=== PATIENT | female | born 1975 | race Caucasian/White ===

== ENCOUNTER → 2017-08-21 21:30 | Outpatient (CLI) | payer OTHER, SELFPAY ==
[2017-08-26 12:55] LABS: HPV Reflexed? NOT INDICATED
== END ==
PROVIDERS: Family Provider Internal Medicine; PCP Internal Medicine; Visit Provider Obstetrics & Gynecology
DX: Z12.4 Encounter for screening for malignant neoplasm of cervix (principal)
CPT/HCPCS: 88175; G0145

== ENCOUNTER → 2017-09-26 13:21 | Outpatient (CLI) | payer OTHER, SELFPAY ==
--- NOTE | 2017-09-26 13:24 | BI_ITS ---
MAMMOGRAPHY - BILATERAL SCREENING REASON FOR EXAM: Female, 41 years old. Routine annual screening examination. PERTINENT HISTORY: Aunt with breast cancer. TECHNIQUE: Digital bilateral breast teddy (3D mammographic acquisition) in the CC and MLO projections. 2-D mediolateral oblique (MLO) and craniocaudad (CC) views of both breasts were obtained. CAD: Full Field Digital Mammography with Computer Added Detection was performed. COMPARISON: Comparison is made with prior study dated September 12, 2016 and August 20, 2015. FINDINGS: Breast Composition: The breasts are heterogeneously dense, which may obscure small masses. There are no dominant masses or suspicious calcifications. No other significant abnormalities are identified. There has been no significant change since the prior study. BI/SCREENING MAMM (CAD), BILAT IMPRESSION: Stable bilateral screening mammogram. Yearly follow-up mammogram recommended. (A) ASSESSMENT CATEGORY: BIRADS Category 1: Negative. A letter regarding these results will be sent to the patient by the facility within 30 days. Approximately 10% of breast cancers are not detected by mammography. A normal mammogram should not delay biopsy of a clinically suspicious abnormality. [id number] Electronically Signed: Chaz Roman MD at 14:47 EDT Tel [phone], Service support ,
== END ==
PROVIDERS: Family Provider Internal Medicine; PCP Internal Medicine; Visit Provider Obstetrics & Gynecology
DX: Z12.31 Encounter for screening mammogram for malignant neoplasm of breast (principal)
CPT/HCPCS: 77063; 77067

== ENCOUNTER → 2018-09-27 | Outpatient (CLI) | payer OTHER, SELFPAY ==
--- NOTE | 2018-09-27 16:25 | BI_ITS ---
MAMMOGRAPHY - BILATERAL SCREENING REASON FOR EXAM: Female, 42 years old. Routine annual screening examination. PERTINENT HISTORY: Aunt with breast cancer. TECHNIQUE: Digital bilateral breast teddy (3D mammographic acquisition) in the CC and MLO projections. 2-D mediolateral oblique (MLO) and craniocaudad (CC) views of both breasts were obtained. CAD: Full Field Digital Mammography with Computer Added Detection was performed. COMPARISON: Comparison is made with prior study dated September 26, 2017 and September 12, 2016. FINDINGS: Breast Composition: The breasts are heterogeneously dense, which may obscure small masses. There are no dominant masses or suspicious calcifications. No other significant abnormalities are identified. There has been no significant change since the prior study. BI/SCREENING MAMM (CAD), BILAT IMPRESSION: Stable bilateral screening mammogram. Yearly follow-up mammogram recommended. (A) ASSESSMENT CATEGORY: BIRADS Category 1: Negative. A letter regarding these results will be sent to the patient by the facility within 30 days. Approximately 10% of breast cancers are not detected by mammography. A normal mammogram should not delay biopsy of a clinically suspicious abnormality. [id number] Electronically Signed: Chaz Roman, at 10:55 EDT , Service support ,
== END | disposition home or self-care (01) ==
LOC: OPBI 16:23
PROVIDERS: Family Provider Internal Medicine; PCP Internal Medicine; Referring Provider Obstetrics & Gynecology; Visit Provider Obstetrics & Gynecology
DX: Z12.31 Encounter for screening mammogram for malignant neoplasm of breast (principal)
CPT/HCPCS: 77063; 77067

== ENCOUNTER → 2019-11-19 | Outpatient (CLI) | payer OTHER, SELFPAY ==
--- NOTE | 2019-11-19 14:50 | BI_ITS ---
MAMMOGRAPHY - BILATERAL SCREENING REASON FOR EXAM: Female, 43 years old. Routine annual screening examination. PERTINENT HISTORY: Aunt with breast cancer. TECHNIQUE: Digital bilateral breast freddy (3D mammographic acquisition) in the CC and MLO projections. 2-D mediolateral oblique (MLO) and craniocaudad (CC) views of both breasts were obtained. CAD: Full Field Digital Mammography with Computer Added Detection was performed. COMPARISON: Comparison is made with prior study dated September 27, 2018 and September 26, 2017. FINDINGS: Breast Composition: The breasts are heterogeneously dense, which may obscure small masses. There are no dominant masses or suspicious calcifications. No other significant abnormalities are identified. There has been no significant change since the prior study. BI/SCREEN MAMM (CAD) W/FREDDY BILAT IMPRESSION: Stable bilateral screening mammogram. Yearly follow-up mammogram recommended. (A) ASSESSMENT CATEGORY: BIRADS Category 1: Negative. A letter regarding these results will be sent to the patient by the facility within 30 days. Approximately 10% of breast cancers are not detected by mammography. A normal mammogram should not delay biopsy of a clinically suspicious abnormality. [id number] Electronically Signed: Chaz Roman, at 15:34 EDT , Service support ,
== END | disposition home or self-care (01) ==
LOC: OPBI 14:49
PROVIDERS: PCP Internal Medicine; Referring Provider Obstetrics & Gynecology; Visit Provider Obstetrics & Gynecology
DX: Z12.31 Encounter for screening mammogram for malignant neoplasm of breast (principal)
CPT/HCPCS: 77063; 77067

== ENCOUNTER → 2020-11-26 | Outpatient (CLI) | payer OTHER, SELFPAY ==
[2020-12-02 18:29] LABS: HPV APTIMA, High Risk Negative (Negative)
== END | disposition home or self-care (01) ==
LOC: LABSPEC 16:29
PROVIDERS: PCP Internal Medicine; Visit Provider Student in an Organized Health Care Education/Training Program
DX: Z12.4 Encounter for screening for malignant neoplasm of cervix (principal)
CPT/HCPCS: 87624; 88175; G0145

== ENCOUNTER → 2020-12-25 08:30 | Outpatient (CLI) | payer OTHER, SELFPAY ==
--- NOTE | 2020-12-25 08:31 | BI_ITS ---
MAMMOGRAPHY - BILATERAL SCREENING REASON FOR EXAM: Female, 45 years old. Routine annual screening examination. PERTINENT HISTORY: Aunt with breast cancer. TECHNIQUE: Digital bilateral breast freddy (3D mammographic acquisition) in the CC and MLO projections. 2-D mediolateral oblique (MLO) and craniocaudad (CC) views of both breasts were obtained. CAD: Full Field Digital Mammography with Computer Added Detection was performed. COMPARISON: Comparison is made with prior study dated 11/19/2019 and 09/27/2018. FINDINGS: Breast Composition: The breasts are heterogeneously dense, which may obscure small masses. There are no dominant masses or suspicious calcifications. No other significant abnormalities are identified. There has been no significant change since the prior study. BI/SCRN MAMM (CAD)W/FREDDY BILAT IMPRESSION: Stable bilateral screening mammogram. Yearly follow-up mammogram recommended. (A) ASSESSMENT CATEGORY: BIRADS Category 1: Negative. A letter regarding these results will be sent to the patient by the facility within 30 days. Approximately 10% of breast cancers are not detected by mammography. A normal mammogram should not delay biopsy of a clinically suspicious abnormality. [id number] Electronically Signed: Chaz Roman MD at 9:57 EDT , Service support ,
== END ==
PROVIDERS: PCP Internal Medicine; Referring Provider Student in an Organized Health Care Education/Training Program; Visit Provider Student in an Organized Health Care Education/Training Program
DX: Z12.31 Encounter for screening mammogram for malignant neoplasm of breast (principal)
CPT/HCPCS: 77063; 77067

== ENCOUNTER 2021-06-22 15:30 | Outpatient (CLI) | payer OTHER, SELFPAY ==
--- NOTE | 2021-06-22 15:40 | MRI_ITS ---
STUDY: MRI BRAIN WITH AND WITHOUT CONTRAST (ATTENTION INTERNAL AUDITORY CANALS - I.A.C.''s) REASON FOR EXAM: Female, 45 years old. [employer] TECHNIQUE: Standardized multiplanar fat and water weighted pulse sequences were obtained. IV dotarem 17ml was administered for the contrast portion of the examination. COMPARISON: None. FINDINGS: Normal bilateral temporal bones. Normal bilateral internal auditory canals. There is no demonstrated intracanalicular or cisternal vestibular schwannoma (acoustic neuroma). There is no enhancement of the bilateral VIIth or VIIIth cranial nerves. Normal bilateral cochlea, vestibules and semicircular canals. Normal size of the ventricles and extra-axial spaces for the patient''s age. Normal white matter tracts of the supratentorial brain. Normal bilateral basal ganglia. There is no enhancing intra-axial or extra-axial abnormality. There is no extra-axial fluid accumulation. Normal sella turcica, pituitary gland, infundibular stalk, optic chiasm and hypothalamus. Normal tectal plate and pineal gland. Normal midbrain, lili and medulla. Normal cerebellum. MRI/Brain W/WO Contrast IMPRESSION: There is no demonstrated intracanalicular or cisternal vestibular schwannoma (acoustic neuroma). Electronically Signed: Marcos Sutton MD at 14:10 EST Tel , Service support ,
== END 2021-06-22 23:59 | disposition short-term general hospital (02) ==
LOC: MRI 15:32
PROVIDERS: PCP Internal Medicine; Visit Provider Otolaryngology
DX: R27.0 Ataxia, unspecified (principal)
CPT/HCPCS: 70553; A9575

== ENCOUNTER → 2022-02-16 | Outpatient (CLI) | payer OTHER, SELFPAY ==
--- NOTE | 2022-02-16 16:02 | BI_ITS ---
MAMMOGRAPHY - BILATERAL SCREENING REASON FOR EXAM: Female, 46 years old. Routine annual screening examination. PERTINENT HISTORY: Aunt with breast cancer. TECHNIQUE: Digital bilateral breast freddy (3D mammographic acquisition) in the CC and MLO projections. 2-D mediolateral oblique (MLO) and craniocaudad (CC) views of both breasts were obtained. CAD: Full Field Digital Mammography with Computer Added Detection was performed. COMPARISON: Comparison is made with prior study dated 12/25/2020 and 11/19/2019. FINDINGS: Breast Composition: The breasts are heterogeneously dense, which may obscure small masses. There are no dominant masses or suspicious calcifications. No other significant abnormalities are identified. There has been no significant change since the prior study. BI/SCRN MAMM (CAD)W/FREDDY BILAT IMPRESSION: Stable bilateral screening mammogram. Yearly follow-up mammogram recommended. (A) ASSESSMENT CATEGORY: BIRADS Category 1: Negative. A letter regarding these results will be sent to the patient by the facility within 30 days. Approximately 10% of breast cancers are not detected by mammography. A normal mammogram should not delay biopsy of a clinically suspicious abnormality. [id number] Electronically Signed: Chaz Roman MD at 8:14 EDT ,
== END | disposition home or self-care (01) ==
LOC: OPBI 16:00
PROVIDERS: PCP Internal Medicine; Visit Provider Student in an Organized Health Care Education/Training Program
DX: Z12.31 Encounter for screening mammogram for malignant neoplasm of breast (principal)
CPT/HCPCS: 77063; 77067

== ENCOUNTER → 2023-02-21 | Outpatient (CLI) | payer OTHER, SELFPAY ==
--- NOTE | 2023-02-21 16:16 | BI_ITS ---
MAMMOGRAPHY - BILATERAL SCREENING REASON FOR EXAM: Female, 47 years old. Routine annual screening examination. PERTINENT HISTORY: Aunt with breast cancer. TECHNIQUE: Digital bilateral breast freddy (3D mammographic acquisition) in the CC and MLO projections. 2-D mediolateral oblique (MLO) and craniocaudad (CC) views of both breasts were obtained. CAD: Full Field Digital Mammography with Computer Added Detection was performed. COMPARISON: Comparison is made with prior study dated February 16, 2022 and December 25, 2020. FINDINGS: Breast Composition: The breasts are heterogeneously dense, which may obscure small masses. There are no dominant masses or suspicious calcifications. No other significant abnormalities are identified. There has been no significant change since the prior study. BI/SCRN MAMM (CAD)W/FREDDY BILAT IMPRESSION: Stable bilateral screening mammogram. Yearly follow-up mammogram recommended. (A) ASSESSMENT CATEGORY: BIRADS Category 1: Negative. A letter regarding these results will be sent to the patient by the facility within 30 days. Approximately 10% of breast cancers are not detected by mammography. A normal mammogram should not delay biopsy of a clinically suspicious abnormality. [id number] Electronically Signed: Chaz Roman MD at 8:39 EDT ,
== END | disposition home or self-care (01) ==
LOC: OPBI 16:15
PROVIDERS: PCP Internal Medicine; Referring Provider Student in an Organized Health Care Education/Training Program; Visit Provider Student in an Organized Health Care Education/Training Program
DX: Z12.31 Encounter for screening mammogram for malignant neoplasm of breast (principal)
CPT/HCPCS: 77063; 77067

== ENCOUNTER → 2025-02-12 | Outpatient (CLI) | payer OTHER, SELFPAY ==
--- NOTE | 2025-02-12 17:11 | RAD_ITS ---
PROCEDURE: CHEST PA AND LATERAL 02/12/2025 REASON FOR EXAM: COUGH X 3 MONTHS TECHNIQUE: CHEST PA AND LATERAL COMPARISON: none FINDINGS: No focal consolidation. No pleural effusion or pneumothorax. Cardiac silhouette is within normal limits. No acute fractures. RAD/Chest PA and Lateral IMPRESSION: No focal consolidations. Reading Location: [facility] [place]
== END | disposition home or self-care (01) ==
LOC: RAD 17:06
PROVIDERS: PCP Internal Medicine; Referring Provider Otolaryngology; Visit Provider Otolaryngology
DX: R05.9 Cough, unspecified (principal)
CPT/HCPCS: 71046

== ENCOUNTER → 2025-02-13 | Outpatient (CLI) | payer OTHER, SELFPAY ==
--- OUTSIDE RECORDS SUMMARY | 2025-02-13 06:38 | XMS RPT_ITS | CCD ---
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 oblique view of right ribs are presented for interpretation. PA view of the chest is also present. FINDINGS: There is no evidence of acute right rib fracture or other bony abnormality. There is no pneumothorax or pleural effusion. The underlying visualized lungs appear normal. DIVISION OF RADIOLOGY Provider, [facility] - 09/02/2024 * * *Final Report* * * DATE OF EXAM: Sep 02 2024 5:11PM WOX 5244 - XR RIB/CHST 3V AP RIB/OBL/CHST R / PROCEDURE REASON: Rib pain * * * * Physician Interpretation * * * * XR RIB/CHST 3V AP RIB/OBL/CHST R EXAM DATE/TIME: 09/02/2024 5:11 PM COMPARISON: None. CLINICAL INDICATION/HISTORY: Rib pain. TECHNIQUE: AP views centered high and low and oblique view of right ribs are presented for interpretation. PA view of the chest is also present. FINDINGS: There is no evidence of acute right rib fracture or other bony abnormality. There is no pneumothorax or pleural effusion. The underlying visualized lungs appear normal. IMPRESSION IMPRESSION: No acute right rib fracture. Program Consultant: JEANNIE Transcribe Date/Time: Sep 02 2024 5:37P Dictated by : JOHNNY JONES MD This examination was interpreted and the report reviewed and electronically signed by: JOHNNY JONES MD on Sep 02 2024 5:38PM EST [facility] ic YECENIA SCREENING W TOMOon 03-20 YECENIA SCREENING W FREDDY * * *Final Report* * * DATE OF EXAM: Mar 20 2024 3:20PM WRW [id number] - YECENIA SCREENING W FREDDY / PROCEDURE REASON: Encounter for screening mammogram for breast cancer * * * * Physician Interpretation * * * * RESULT: [place] [id number] HISTORY: Patient is 48 years old and is seen for screening and is asymptomatic in both breasts. The patient has no personal history of cancer. COMPARISON STUDIES: No prior imaging studies are available for comparison. MAMMOGRAM TECHNIQUE: The study was acquired using full field digital technology and interpreted from soft copy. Digital Breast Tomosynthesis (DBT) images were obtained and used to assist in the interpretation of this examination. Computer-aided detection was utilized by the radiologist in the interpretation of this examination. MAMMOGRAM FINDINGS: The breasts are heterogeneously dense, which may obscure small masses. No suspicious masses, calcifications or other abnormalities are seen in either breast. IMPRESSION: There is no mammographic evidence of malignancy in either breast. Routine follow-up mammogram in 1 year is recommended. BI-RADS Category 1: Negative RISK: Based on the Tyrer-Cuzick (TC) risk assessment model, this patient has a 8.9% lifetime risk of developing breast cancer, meaning they are at average risk for developing breast cancer. However, this is only an estimate based on available history provided on the patient's questionnaire. We encourage all patients talk with their providers about these results, further recommendations for managing breast health, and appropriate supplemental screening options if the patient has dense breast tissue. Interpreting Radiologist: Adal Mckinnon M.D. Electronically signed on: 03/27/2024 Program Consultant: ELOY Olivaribe Date/Time: Mar 20 2024 3:07P Dictated by: ADAL MCKINNON MD This examination was interpreted and the report reviewed and electronically signed by: ADAL MCKINNON MD on Mar 27 2024 10:38AM EST [id number] Normal [facility] CNOVon 02-20-2024 CNOV Office Visit (OBGYWM ) ERA AWAD ([id number]) 1975 F Date Time Provider Department 02/20/24 3:30 PM VANESSA PALOMARES OBLEEROYWLuciana During your visit today, we recorded the following information about you: Blood pressure Weight Height 126/80 69.9 kg 1.61 m Vanessa Palomares APRN.CNP 02/20/2024 4:46 PM Signed Sound Printer offered: Patient declines. Era is a 48 year old who presents for an annual gynecologic exam without complaints. [place] transfer Menses: just a few days of light spotting. Contraception: Progestin - only contraceptives HPV vaccine: No Last Pap: normal HPV: negative History of abnormal pap: No Last mammogram: 2022normal @ [facility] Sexually active: Yes Pain with intercourse: No Postcoital bleeding: No Hot flashes: Yes Night sweats: Yes OB History T2 L2 SAB0 IAB0 Ectopic0 Multiple0 Live Births2 Maintenance Clerk History LMP: Having periods Age at Menarche: Age at First : Age at Menopause: Maintenance Clerk History Comments: Sexual Activity: Yes; Male Contraception: No contraception data on record PAST MEDICAL HISTORY No date: Other acnePAST SURGICAL HISTORY No date: COLONOSCOPY SCREENING No date: PAST SURGICAL HISTORY OF Comment: sinus No date: PAST SURGICAL HISTORY OF Comment: neck surgery 11/30 FAMILY HISTORY Problem Relation Age of Onset Hypertension Mother other (hypercholesterolemia ) Mother Psychiatry Mother with previous hospital admission None Father No Known Problems Maternal Grandmother No Known Problems Maternal Grandfather No Known Problems Paternal Grandmother Cancer Paternal Grandfather SOCIAL HISTORY Social History Tobacco Use Smoking status: Never Smokeless tobacco: Never Vaping Use Vaping status: Never Used Substance Use Topics Alcohol use: No Drug use: No REVIEW OF SYSTEMS Abdomen: No abdominal pain, nausea, vomiting, diarrhea, or constipation. No bloating, early satiety, indigestion, or increased flatulence. Bladder: No dysuria, gross hematuria, urinary frequency, urinary urgency, or incontinence. Breast: No breast lumps, nipple d/c, overlying skin changes, redness or skin retraction. Allergies and current medication updated:Yes EXAM: BP 126/80 Ht 5' 3.386 (1.61m) Wt 154 lb (69.9kg) BMI 26.95 kg/(m2). GENERAL: pleasant, female in no apparent distress HEENT: Normocephalic, atraumatic, mucus membranes moist, and no lesions NECK: Supple, full range of motion, no adenopathy, and thyroid normal DERMATOLOGY: Normal, without lesions, non-icteric, and non-hirsute BREAST: soft, non-tender, symmetric, no dominant mass, normal nipple-areolar complex, no lymphadenopathy, and no nipple discharge CHEST: Normal inspiratory effort ABDOMEN: soft, non-tender, and no masses PELVIC: external genitalia normal, normal Bartholin's glands, urethra, Spearman's glands, no vulvar lesions, no cervical lesions, good vaginal support, physiologic discharge present, normal appearing perineal body and perianal region BIMANUAL: uterus normal size, shape and consistency, no adnexal masses, and non-tender RECTOVAGINAL: deferred. NEURO: alert and oriented x3,exam grossly non-focal EXTREMITIES: normal ASSESSMENT/PLAN: 1) Health maintenance: Pap done with HPV. Mammogram ordered. Nutrition, exercise and routine health maintenance exams reviewed. Calcium/Vitamin D supplementation information provided. 2) Contraception: Progestin - only contraceptives. Contraceptive options reviewed and information provided. 3) STD screening: Declined STD check. 4) Follow up one year or sooner as needed Vanessa Palomares APRN.LUMBER CHECKER Allergies As of Date: 02/20/2024 Noted Allergy Reaction BACTRIM (SULFAMETHOXAZOLE-TRI METH*08/18/2005 Date Reviewed: 02/20/2024 Reviewed by: Vanesas Palomares APRN.LUMBER CHECKER - Fully Assessed Reason for Visit: Well Woman [1463] Primary Visit Diagnosis:Encounter for gynecological examination (general) (routine) without abnormal findings [Z01.419] Other Visit Diagnoses:Screening for cervical cancer [Z12.4] Encounter for screening for human papillomavirus (HPV) [Z11.51] Encounter for screening mammogram for breast cancer [Z12.31] Order(s):PAP TEST [[id number]] Order #: [id number]. #:[id number] YECENIA SCREENING W FREDDY [[id number]] Order #: [id number] FUTURE Norethindrone, Contraceptive, 0.35 mg tabletTake 1 tablet by mouth every afternoon.Disp: 84 tabletRfl: 3 Prescriptions as of 02/20/2024 - spironolactone (ALDACTONE) 100 mg tablet Take 100 mg by mouth once daily. - Norethindrone, Contraceptive, 0.35 mg tablet Take 1 tablet by mouth every afternoon. Problem List As Of Date 02/20/2024 Noted Resolved Cystitis [N30.90] 05/16/2012 Generalized abdominal pain [R10.84] 05/16/2012 Urgency of urination [R39.15] 05/16/2012 Frequency of urination [R35.0] 05/16/2012 Microscopic hematuria [R31.29] 05/16/2012 (more content not included)... Normal [facility] HIGH RISK HUMAN PAPILLOMA SHERYL (HPV), PCR FOR DETECTION AND GENOTYPINGon 02-20-2024 HPV 16 Ag Ql (Unsp spec) Not detected Normal Not detected [facility] Comment on above: Order Comment: Speci men Type: FLUID SPECIMEN Ordering Facility: [facility] Address: [address] [place] [address] Performed By: #### L [id number], HPVHRT #### [facility] CLIA [id number] [address] [place] [address] [place] HPV 18 Ag Ql (Unsp spec) Not detected Normal Not detected [facility] Comment on above: Order Comment: Speci men Type: FLUID SPECIMEN Ordering Facility: [facility] Address: [address] [place] [address] Performed By: #### L [id number], HPVHRT #### [facility] CLIA [id number] [address] [place] [address] [place] HPV 31+33+35+39+45+51+5 2+56+58+59+66+68 DNA JENS+probe Ql (Cvx) Not detected Normal Not detected [facility] Comment on above: Order Comment: Speci men Type: FLUID SPECIMEN Ordering Facility: [facility] Address: [address] [place] [address] Result Comment: High Risk HPV Other Type includes HPV types 31, 33, 35, 39, 45, 51, 52, 56, 58, 59, 66 and 68. Performed By: #### L [id number], HPVHRT #### [facility] CLIA [id number] [address] [place] [address] [place] PAP TESTon 02-20-2024 ADEQUACY Satisfactory for interpretation. Normal [facility] Comment on above: Order Comment: Speci men Type: FLUID SPECIMEN Ordering Facility: [facility] Address: [address] [place] [address] Performed By: #### L [id number], HPVHRT #### [facility] CLIA [id number] [address] [place] [address] [place] CASE REPORT Normal [facility] Comment on above: Order Comment: Speci men Type: FLUID SPECIMEN Ordering Facility: [facility] Address: [address] [place] [address] Result Comment: Gyne cologic Cytology Report Case: [id number] Authorizing Provider: Vanessa Palomares APRN.LUMBER CHECKER Collected: 02/20/2024 04:16 PM Ordering Location: OB/Gynecology Received: 02/20/2024 04:33 PM First Screen: Hannah, Zoe, CT, ASCP Specimen: Pap Test, ThinPrep, Cervix Performed By: #### L [id number], HPVHRT #### [facility] CLIA [id number] [address] [place] [id number] [place] CLINICAL HISTORY, CYTOLOGY, SURGERY TECHNICIAN Routine Exam Normal [facility] Comment on above: Order Comment: Speci men Type: FLUID SPECIMEN Ordering Facility: [facility] Address: [address] [place], [place] [id number] Performed By: #### L [id number], HPVHRT #### [facility] CLIA [id number] [address] [place], [place] [id number] [place] FINAL PERFORMING LAB Normal [facility] Comment on above: Order Comment: Speci men Type: FLUID SPECIMEN Ordering Facility: [facility] Address: [address] [place] [address] Result Comment: Tech nical component, department of mathematics chair screening performed at [facility], [address] [place] [address] [place] [address] CLIA# [id number] Diagnostic interpretation performed at [facility], [address] [place] [address] CLIA# [id number] Liquid Flavor Compounder: Chuy Diaz M.D. Performed By: #### L [id number], HPVHRT #### [facility] CLIA [id number] [address] [place] [address] [place] HPV REFLEX Yes HPV Normal [facility] Comment on above: Order Comment: Speci men Type: FLUID SPECIMEN Ordering Facility: [facility] Address: [address] [place], [place] [id number] Performed By: #### L [id number], HPVHRT #### [facility] CLIA [id number] [address] [place], [place] [id number] [place] INTERPRETATION, CYTOLOGY, SURGERY TECHNICIAN Normal [facility] Comment on above: Order Comment: Speci men Type: FLUID SPECIMEN Ordering Facility: [facility] Address: [address] [place], [place] [id number] Result Comment: Nega tive for intraepithelial lesion or malignancy. Performed By: #### L [id number], HPVHRT #### [facility] CLIA [id number] [address] [place] [address] [place] LMP 01/22/2024 Normal [facility] Comment on above: Order Comment: Speci men Type: FLUID SPECIMEN Ordering Facility: [facility] Address: [address] [place] [address] Performed By: #### L [id number], HPVHRT #### [facility] CLIA [id number] [address] [place] [address] [place] PAP DISCLAIMER COMMENT The Pap Smear is a screening test for cervical cancer. False negative results occur with all screening tests, emphasizing the need for rescreening at recommended intervals, and clinical correlation. Normal [facility] Comment on above: Order Comment: Spec men Type: FLUID SPECIMEN Ordering Facility: [facility] Address: [address] [place] [address] Performed By: #### L [id number], HPVHRT #### [facility] CLIA [id number] [address] [place] [address] [place] PAP PACK PULLER COMMENT This specimen has been analyzed by the ThinPrep Imaging System, an automated imaging and review system, which assists the laboratory in evaluating cells on ThinPrep Pap tests. Following automated imaging, selected holcomb from every slide are reviewed by a department of mathematics chair. Normal [facility] Comment on above: Order Comment: Speci men Type: FLUID SPECIMEN Ordering Facility: [facility] Address: [address] [place] [address] Performed By: #### L [id number], HPVHRT #### [facility] CLIA [id number] [address] [place] [address] [place] SCRN MAMM (CAD)W/FREDDYNatasha talbert 02-16-2022 SCRN MAMM (CAD)W/FREDDY [facility] Imaging Services [address] [place] [address] SCRN MAMM (CAD)W/FREDDY BILAT MR#: [id number] Acct: [id number] Name: ERA AWAD Rep #: [id number] : 1975 F 46 From: Chaz mendoza MD PCP: Dr. Jay Douglas DO Status: [facility] Study: SCRN MAMM (CAD)W/FREDDY BILAT Date of Exam: 01/19 07/10 Exam# [id number] Ordering Dr: Karen Feng DO MAMMOGRAPHY - BILATERAL SCREENING REASON FOR EXAM: Female, 46 years old. Routine annual screening examination. PERTINENT HISTORY: Aunt with breast cancer. TECHNIQUE: Digital bilateral breast freddy (3D mammographic acquisition) in the CC and MLO projections. 2-D mediolateral oblique (MLO) and craniocaudad (CC) views of both breasts were obtained. CAD: Full Field Digital Mammography with Computer Added Detection was performed. COMPARISON: Comparison is made with prior study dated 12/25/2020 and 11/19/2019. FINDINGS: Breast Composition: The breasts are heterogeneously dense, which may obscure small masses. There are no dominant masses or suspicious calcifications. No other significant abnormalities are identified. There has been no significant change since the prior study. BI/SCRN MAMM (CAD)W/FREDDY BILAT IMPRESSION: Stable bilateral screening mammogram. Yearly follow-up mammogram recommended. (A) ASSESSMENT CATEGORY: BIRADS Category 1: Negative. A letter regarding these results will be sent to the patient by the facility within 30 days. Approximately 10% of breast cancers are not detected by mammography. A normal mammogram should not delay biopsy of a clinically suspicious abnormality. [id number] Electronically Signed: Chaz Roman MD at 8:14 EDT , CC: Dr. Karen Feng DO; Dr. Jay Douglas DO Program Consultant: Signed Normal [facility] Brain W/WO Contraston 2021 Brain W/WO Contrast [facility] Imaging Services [address] [place] [address] Brain W/WO Contrast MR#: [id number] Acct: [id number] Name: ERA AWAD Rep #: [id number] : 1975 F 45 From: Marcos Sutton MD PCP: Dr. Jay Douglas DO Status: REG CLI Study: Brain W/WO Contrast Date of Exam: 06/22/21 Exam# [id number] Ordering Dr: Fabrizio Win MD STUDY: MRI BRAIN WITH AND WITHOUT CONTRAST (ATTENTION INTERNAL AUDITORY CANALS - I.A.C.''s) REASON FOR EXAM: Female, 45 years old. [employer] TECHNIQUE: Standardized multiplanar fat and water weighted pulse sequences were obtained. IV dotarem 17ml was administered for the contrast portion of the examination. COMPARISON: None. FINDINGS: Normal bilateral temporal bones. Normal bilateral internal auditory canals. There is no demonstrated intracanalicular or cisternal vestibular schwannoma (acoustic neuroma). There is no enhancement of the bilateral VIIth or VIIIth cranial nerves. Normal bilateral cochlea, vestibules and semicircular canals. Normal size of the ventricles and extra-axial spaces for the patient''s age. Normal white matter tracts of the supratentorial brain. Normal bilateral basal ganglia. There is no enhancing intra-axial or extra-axial abnormality. There is no extra-axial fluid accumulation. Normal sella turcica, pituitary gland, infundibular stalk, optic chiasm and hypothalamus. Normal tectal plate and pineal gland. Normal midbrain, lili and medulla. Normal cerebellum. MRI/Brain W/WO Contrast IMPRESSION: There is no demonstrated intracanalicular or cisternal vestibular schwannoma (acoustic neuroma). Electronically Signed: Marcos Sutton MD at 14:10 EST Tel , Service support , CC: Dr. Jay Douglas, DO; Dr. Fabrizio Win MD Program Consultant: Signed Normal [facility] CORONAVIRUS PCR - [facility] 02-20-2021 SARS-CoV-2 (COVID-19) RNA JENS+probe Ql (Unsp spec) Negative Normal NORMAL: NEGATIVE [facility] Comment on above: Performed By: #### 2 [id number] #### [facility],[address] [place] [address] SEND TO IC? YES Normal [facility] Comment on above: Result Comment: RESU LTS FAXED TO INFECTION CONTROL. SARS-CoV-2 THIS TEST IS BEING USED UNDER THE FDA EUA PROCEDURE. THIS ASSAY HAS BEEN VALIDATED IN THE [facility] FOR USE WITH NASOPHARYNGEAL SPECIMENS IN [facility]. INTERPRETIVE [facility] LABORATORY TEST RESULTS SHOULD ALWAYS BE CONSIDERED IN THE CONTEXT OF CLINICAL OBSERVATIONS AND EPIDEMIOLOGICAL DATA IN MAKING FINAL DIAGNOSIS AND PATIENT MANAGEMENT DECISIONS. PATIENT MANAGEMENT SHOULD FOLLOW CURRENT CDC GUIDELINES. A POSITIVE TEST RESULT FOR COVID-19 INDICATES THAT RNA FROM SARS-CoV-2 WAS DETECTED, AND THE PATIENT IS INFECTED WITH THE VIRUS AND PRESUMED TO BE CONTAGIOUS. A NEGATIVE TEST RESULT FOR THIS TEST MEANS THAT SARS-CoV-2 RNA WAS NOT PRESENT IN THE SPECIMEN ABOVE THE LIMIT OF DETECTION. HOWEVER, A NEGATVIE RESULT DOES NOT RULE OUT COVID-19 AND SHOULD NOT BE USED THE SOLE BASIS FOR TREATMENT OR PATIENT MANAGEMENT DECISIONS. A NEGATIVE RESULT DOES NOT EXCLUDE THE POSSIBILITY OF COVID-19. WHEN DIAGNOSTIC TESTING IS NEGATIVE, THE POSSIBLILTY OF A FALSE NEGATIVE RESULT SHOULD BE CONSIDERED IN THE CONTEXT OF A PATIENT'S RECENT EXPOSURES AND THE PRESENCE OF CLINICAL SIGNS AND SYMPTOMS CONSISTENT WITH COVID-19. THE POSSIBILITY OF A FALSE NEGATIVE RESULT SHOULD ESPECIALLY BE CONSIDERED IF THE PATIENT'S RECENT EXPOSURES OR CLINICAL PRESENTATION INDICATE THAT COVID-19 IS LIKELY, AND DIAGNOSTIC TESTS FOR OTHER CAUSES OF ILLNESS (e.g., OTHER RESPIRATORY ILLNESS) ARE NEGATIVE. IF COVID-19 IS STILL SUSPECTED BASED ON EXPOSURE HISTORY TOGETHER WITH OTHER CLINICAL FINDINGS, RE-TESTED SHOULD BE CONSIDERED BY HEALTHCARE PROVIDERS IN CONSULTATION WITH PUBLIC HEALTH AUTHORITIES. Performed By: #### 2 [id number] #### [facility],[address] [place] [address] URINE MAKAYLA [place]ULTURE[place]IDENTIF[place] ([id number])Ordered By: Manager Sales Training on 08-25-2015 Bacteria identified Cx Nom (U) MUG Normal [facility] Work Phone: Comment on above: Mixed urogenital misael ra1,000 Colonies/mL PATIENT NOT FASTINGP ERFORMED BY: txtrUNC [facility] [id number] Information: [id number] Bacteria identified Cx Nom (U) Final report Normal [facility] Work Phone: Comment on above: PATIENT NOT FASTINGP ERFORMED BY: [employer] LabGreenPalrp Clear MetalsUNC [facility] [id number] Information: [id number] Urinalysis, Office ([phone])on 08-25-2015 Bilirubin Ql (U) Negative Normal [facility] Work Phone: Glucose Test strip (U) [Mass/Vol] Negative Normal [facility] Work Phone: Hemoglobin Ql (U) Hemolyzed Large Normal Co [facility] Work Phone: Ketones Ql (U) Negative Normal [facility] Work Phone: Leukocyte esterase Test strip Ql (U) Small Normal [facility] Work Phone: Nitrite Ql (U) Negative Normal [facility] Work Phone: pH (U) 6.0 [pH] Normal [facility] Work Phone: Comment on above: 5.5 Protein Ql (U) Negative Normal [facility] Work Phone: Specific gravity (U) [Rel density] 1.005 1 Normal [facility] Work Phone: Urobilinogen (24H U) [Mass/Time] Normal Normal [facility] Work Phone: URINE MAKAYLA CULTURE-REGI COL C OUNT ([id number])Ordered By: Manager Sales Training on 08-18-2015 Bacteria identified Cx Nom (U) MUG Normal [facility] Work Phone: Comment on above: Mixed urogenital misael ra25,000-50,000 colony forming units per mL PATIENT NOT FASTINGP ERFORMED BY: txtrUNC [facility] [id number] Information: SRC:UR [id number] Bacteria identified Cx Nom (U) Final report Normal [facility] Work Phone: Comment on above: PATIENT NOT FASTINGP ERFORMED BY: [id number] Chuang[employer] SoftwareKnox County Hospital [id number] Information: SRC:UR [id number] Urinalysis, Office ([id number])on 08-18-2015 Bilirubin Ql (U) Negative Normal [facility] Work Phone: Glucose Test strip (U) [Mass/Vol] Negative Normal [facility] Work Phone: Hemoglobin Ql (U) Hemolyzed Large Normal [facility] Work Phone: Ketones Ql (U) Negative Normal [facility] Work Phone: Leukocyte esterase Test strip Ql (U) Small Normal [facility] Work Phone: Nitrite Ql (U) Negative Normal [facility] Work Phone: pH (U) 6 [pH] Abnormal [facility] Work Phone: Protein Ql (U) Negative Normal [facility] Work Phone: Specific gravity (U) [Rel density] 1.010 1 Normal [facility] Work Phone: Urobilinogen (24H U) [Mass/Time] Normal Normal [facility] Work Phone: Vital Signs Date Time Vital Sign Value Performing Clinician Facility 11-27-2024 15:43-0400 Body mass index (BMI) [Ratio] 27 kg/m2 Mahsa Praisler-Wood ORGANIC CHEMIST.LUMBER CHECKER Work Phone: [facility] 11-27-2024 15:43-0400 Body temperature 98.2 [degF] Mahsa Praisler-Wood ORGANIC CHEMIST.LUMBER CHECKER Work Phone: [facility] 11-27-2024 15:43-0400 Body weight 70 kg Mahsa Praisler-Wood ORGANIC CHEMIST.LUMBER CHECKER Work Phone: [facility] 11-27-2024 15:43-0400 Diastolic blood pressure 80 mm[Hg] Mahsa Praisler-Wood ORGANIC CHEMIST.LUMBER CHECKER Work Phone: [facility] 11-27-2024 15:43-0400 Heart rate 77 /min Mahsa Praisler-Wood ORGANIC CHEMIST.LUMBER CHECKER Work Phone: [facility] 11-27-2024 15:43-0400 Respiratory rate 18 /min Mahsa Praisler-Wood ORGANIC CHEMIST.LUMBER CHECKER Work Phone: [facility] 11-27-2024 15:43-0400 SaO2% (BldA) [Mass fraction] 100 % Mahsa Praisler-Wood ORGANIC CHEMIST.LUMBER CHECKER Work Phone: [facility] 11-27-2024 15:43-0400 Systolic blood pressure 124 mm[Hg] Mahsa Praisler-Wood ORGANIC CHEMIST.LUMBER CHECKER Work Phone: [facility] 09-02-2024 16:15-0400 Body mass index (BMI) [Ratio] 27.58 kg/m2 Fransisca Fern ORGANIC CHEMIST.LUMBER CHECKER Work Phone: [facility] 09-02-2024 16:15-0400 Body temperature 98.71 [degF] Fransisca Fern ORGANIC CHEMIST.LUMBER CHECKER Work Phone: [facility] 09-02-2024 16:15-0400 Body weight 71.5 kg Fransisca Fern ORGANIC CHEMIST.LUMBER CHECKER Work Phone: [facility] 09-02-2024 16:15-0400 Diastolic blood pressure 82 mm[Hg] Fransisca Fern ORGANIC CHEMIST.LUMBER CHECKER Work Phone: [facility] 09-02-2024 16:15-0400 Heart rate 89 /min Fransisca Fern ORGANIC CHEMIST.LUMBER CHECKER Work Phone: [facility] 09-02-2024 16:15-0400 Respiratory rate 18 /min Fransisca Fern ORGANIC CHEMIST.LUMBER CHECKER Work Phone: [facility] 09-02-2024 16:15-0400 SaO2% (BldA) [Mass fraction] 97 % Fransisca Fern ORGANIC CHEMIST.LUMBER CHECKER Work Phone: [facility] 09-02-2024 16:15-0400 Systolic blood pressure 132 mm[Hg] Fransisca Fern ORGANIC CHEMIST.LUMBER CHECKER Work Phone: [facility] 02-20-2024 15:28-0400 Body height 161 cm Vanessa Adeline ORGANIC CHEMIST.LUMBER CHECKER Work Phone: [facility] 02-20-2024 15:28-0400 Body mass index (BMI) [Ratio] 26.95 kg/m2 Vanessa Adeline ORGANIC CHEMIST.LUMBER CHECKER Work Phone: [facility] 02-20-2024 15:28-0400 Body weight 69.85 kg Vanessa Adeline ORGANIC CHEMIST.LUMBER CHECKER Work Phone: [facility] 02-20-2024 15:28-0400 Diastolic blood pressure 80 mm[Hg] Vanessa Adeline ORGANIC CHEMIST.LUMBER CHECKER Work Phone: [facility] 02-20-2024 15:28-0400 Systolic blood pressure 126 mm[Hg] Vanessa Montgomery ORGANIC CHEMIST.LUMBER CHECKER Work Phone: [facility] 08-25-2015 10:37-0500 BMI (Body Mass Index) 30.18 kg/m2 [facility] Work Phone: 08-25-2015 10:37-0500 Body Temperature 97.8 [degF] Sridevi Dover [facility] Work Phone: 08-25-2015 10:37-0500 Body weight 77.28 kg Sridevi Dover [facility] Work Phone: 08-25-2015 10:37-0500 BP Diastolic 82 mm[Hg] Sridevi Dover [facility] Work Phone: Comment on above: Patient Position: Sitting; Cuff Location : Left Arm; Cuff Size: Standard 08-25-2015 10:37-0500 BP Systolic 122 mm[Hg] Sridevi Dover [facility] Work Phone: Comment on above: Patient Position: Sitting; Cuff Location : Left Arm; Cuff Size: Standard 08-25-2015 10:37-0500 BSA (Body Surface Area) 1.81 m2 Sridevi Dover [facility] Work Phone: 08-25-2015 10:37-0500 Height 160.02 cm Sridevi Dover [facility] Work Phone: 08-25-2015 10:37-0500 Pulse (Heart Rate) 61 /min Sridevi Dover [facility] Work Phone: Comment on above: Pattern: Regular 08-25-2015 10:37-0500 Pulse Oximetry 100 % Sridevi Dover [facility] Work Phone: Comment on above: Room air 08-25-2015 10:37-0500 Respiratory Rate 14 /min Sridevi Dover [facility] Internal [facility] Work Phone: Comment on above: Pattern: Unlabored 08-18-2015 09:36-0500 BMI (Body Mass Index) 30.34 kg/m2 Sridevi Dover [facility] Internal Medicine Work Phone: 08-18-2015 09:36-0500 Body Temperature 97.4 [degF] Sridevi Dover [facility] Work Phone: 08-18-2015 09:36-0500 Body weight 77.68 kg Sridevi Dover [facility] Work Phone: 08-18-2015 09:36-0500 BP Diastolic 82 mm[Hg] Sridevi Dover [facility] Work Phone: Comment on above: Patient Position: Sitting; Cuff Location : Left Arm; Cuff Size: Standard 08-18-2015 09:36-0500 BP Systolic 124 mm[Hg] Sridevi Dover [facility] Work Phone: Comment on above: Patient Position: Sitting; Cuff Location : Left Arm; Cuff Size: Standard 08-18-2015 09:36-0500 BSA (Body Surface Area) 1.81 m2 [facility] Work Phone: 08-18-2015 09:36-0500 Height 160.02 cm Sridevi [facility] Work Phone: 08-18-2015 09:36-0500 Pulse (Heart Rate) 79 /min Sridevi Dover [facility] Work Phone: Comment on above: Pattern: Regular 08-18-2015 09:36-0500 Pulse Oximetry 98 % Sridevi Dover [facility] Work Phone: Comment on above: Room air 08-18-2015 09:36-0500 Respiratory Rate 18 /min Sridevi Dover [facility] Work Phone: Comment on above: Pattern: Unlabored 09-24-2009 12:55-0400 Body Temperature 98.3 [degF] Sridevi Barth Internal Medicine Work Phone: Comment on above: Method: Oral 09-24-2009 12:55-0400 BP Diastolic 72 mm[Hg] Sridevi Dover [facility] Work Phone: Comment on above: Patient Position: Sitting; Cuff Location : Left Arm; Cuff Size: Standard 09-24-2009 12:55-0400 BP Systolic 104 mm[Hg] Sridevi [facility] Work Phone: Comment on above: Patient Position: Sitting; Cuff Location : Left Arm; Cuff Size: Standard 09-24-2009 12:55-0400 Pulse (Heart Rate) 68 /min Sridevi [facility] Work Phone: Comment on above: Pattern: Regular 09-24-2009 12:55-0400 Respiratory Rate 14 /min Sridevi Dover [facility] Work Phone: Comment on above: Pattern: Unlabored 09-25-2007 11:19-0400 BMI (Body Mass Index) 26.96 kg/m2 [facility] Work Phone: 09-25-2007 11:19-0400 Body weight 69.03 kg Sridevi Dover [facility] Work Phone: 09-25-2007 11:19-0400 BP Diastolic 78 mm[Hg] Sridevi Dover [facility] Work Phone: Comment on above: Patient Position: Sitting; Cuff Location : Left Arm; Cuff Size: Standard 09-25-2007 11:19-0400 BP Systolic 122 mm[Hg] Sridevi Dover [facility] Work Phone: Comment on above: Patient Position: Sitting; Cuff Location : Left Arm; Cuff Size: Standard 09-25-2007 11:19-0400 BSA (Body Surface Area) 1.72 m2 Sridevi Dover [facility] Work Phone: 09-25-2007 11:19-0400 Head Circumference 0 cm Sridevi Dover [facility] Work Phone: 09-25-2007 11:19-0400 Height 160.02 cm Sridevi Dover [facility] Work Phone: 09-25-2007 11:19-0400 Pulse (Heart Rate) 64 /min Sridevi Dover [facility] Work Phone: Comment on above: Pattern: Regular 09-25-2007 11:19-0400 Respiratory Rate 18 /min Sridevi Dover [facility] Work Phone: Comment on above: Pattern: Unlabored Encounters Encounter Date Encounter Type Care Provider Facility Start: 12-31-2024 Review Molly Magana Work Phone: [facility]. Start: 11-27-2024 End: 11-27-2024 Patient encounter procedure Mahsa Cabral APRN.CNP Work Phone: [facility] Comment on above: Acute pansinusitis, recurrence not specified; Acute bronchitis, unspecified organism; Wheezing; Postnasal drip Start: 11-27-2024 End: 11-27-2024 ambulatory MAHSA CABRAL Facility:[facility] Start: 09-02-2024 End: 09-02-2024 Subsequent hospital visit by physician [facility] Work Phone: Radiology Comment on above: Neck pain [M54.2] Start: 09-02-2024 End: 09-02-2024 ambulatory JAY A FAST Facility:[facility] Start: 09-02-2024 End: 09-02-2024 Patient encounter procedure Fransisca Shirley APRN.LUMBER CHECKER Work Phone: [facility] Comment on above: Rib pain (Primary Dx ); Neck pain Start: 03-20-2024 End: 03-20-2024 ambulatory VANESSA ADELINE Facility:[facility] Start: 03-20-2024 End: 03-20-2024 Subsequent hospital visit by physician [facility] Comment on above: Encounter for screen ing mammogram for breast cancer [Z12.31] Start: 02-20-2024 End: 02-20-2024 [facility] Facility:[facility] Start: 02-20-2024 End: 02-20-2024 Patient encounter procedure Vanessa Palomares APRN.LUMBER CHECKER Work Phone: OB/Gynecology Comment on above: Encounter for gyneco logical examination (general) (routine) without abnormal findings (Primary Dx); Screening for cervical cancer; Encounter for screening for human papillomavirus (HPV); Encounter for screening mammogram for breast cancer Start: 02-20-2024 End: 02-20-2024 Patient encounter status Vanessa Palomares APRN.LUMBER CHECKER Work Phone: [facility] Start: 02-21-2023 End: 02-21-2023 ambulatory [facility] Work Phone: Start: 02-21-2023 End: 02-21-2023 Patient encounter procedure [facility] Work Phone: Start: 02-16-2022 End: 02-16-2022 ambulatory [facility] Work Phone: Start: 02-16-2022 End: 02-16-2022 Patient encounter procedure [facility] Start: 02-18-2021 End: 02-18-[address] NATHAN ALEXANDER [facility] Start: 08-25-2015 End: 08-25-2015 Annotation/Addendum Sridevi Barth [facility] Start: 08-25-2015 End: 08-25-2015 Office outpatient visit 25 minutes Sridevi [facility] Start: 08-18-2015 End: 08-18-2015 Office outpatient visit 25 minutes Sridevi Barth Internal Medicine Start: 09-24-2009 End: 09-24-2009 Patient encounter procedure Sridevi Barth Internal Medicine Start: 09-25-2007 End: 09-25-2007 Patient encounter procedure Sridevi Dover [facility] Procedures Date Procedure Procedure Detail Performing Clinician Start: 09-02-2024 Radex spine cervical 4 or 5 views Fransisca Shirley ORGANIC CHEMIST.LUMBER CHECKER Work Phone: Start: 02-21-2023 Screening mammography Start: 02-16-2022 Screening mammography Start: 11-19-2019 End: 11-19-2019 SCREEN MAMM (CAD) W/FREDDY BILAT Comments: See Note; NOTES: [facility] Imaging Services [address] [place] [address] SCREEN MAMM (CAD) W/FREDDY BILAT MR#: [id number] Acct: [id number] Name: ERA AWAD Rep #: [id number] : 1975 F 43 From: Chaz mendoza MD PCP: Dr. Jay Douglas, DO Status: REG CLI Study: SCREEN MAMM (CAD) W/FREDDY BILAT Date of Exam: 0 11/19/19 Exam# [id number] Ordering Dr: Regi Dorsey CNM MAMMOGRAPHY - BILATERAL SCREENING REASON FOR EXAM: Female, 43 years old. Routine annual screening examination. PERTINENT HISTORY: Aunt with breast cancer. TECHNIQUE: Digital bilateral breast freddy (3D mammographic acquisition) in the CC and MLO projections. 2-D mediolateral oblique (MLO) and craniocaudad (CC) views of both breasts were obtained. CAD: Full Field Digital Mammography with Computer Added Detection was performed. COMPARISON: Comparison is made with prior study dated September 27, 2018 and September 26, 2017. FINDINGS: Breast Composition: The breasts are heterogeneously dense, which may obscure small masses. There are no dominant masses or suspicious calcifications. No other significant abnormalities are identified. There has been no significant change since the prior study. BI/SCREEN MAMM (CAD) W/FREDDY BILAT IMPRESSION: Stable bilateral screening mammogram. Yearly follow-up mammogram recommended. (A) ASSESSMENT CATEGORY: BIRADS Category 1: Negative. A letter regarding these results will be sent to the patient by the facility within 30 days. Approximately 10% of breast cancers are not detected by mammography. A normal mammogram should not delay biopsy of a clinically suspicious abnormality. [id number] Electronically Signed: Chaz Roman, at 15:34 EDT , Service support , CC: BRYANNA Dorsey; Dr. Jay Douglas DO Program Consultant: Signed Sridevi Dover Start: 09-27-2018 End: 09-28-2018 SCREENING MAMM (CAD), BILAT Comments: See Note; NOTES: [facility] Imaging Services [address] [place] [address] SCREENING MAMM (CAD), BILAT MR#: [id number] Acct: [id number] Name: ERA AWAD Rep #: [id number] : 1975 F 42 From: Chaz Roman MD PCP: Jay Douglas DO Status: REG CLI Study: SCREENING MAMM (CAD), BILAT Date of Exam: 09/27/18 Exam# [id number] Ordering Dr: Zoe Sy MD MAMMOGRAPHY - BILATERAL SCREENING REASON FOR EXAM: Female, 42 years old. Routine annual screening examination. PERTINENT HISTORY: Aunt with breast cancer. TECHNIQUE: Digital bilateral breast freddy (3D mammographic acquisition) in the CC and MLO projections. 2-D mediolateral oblique (MLO) and craniocaudad (CC) views of both breasts were obtained. CAD: Full Field Digital Mammography with Computer Added Detection was performed. COMPARISON: Comparison is made with prior study dated September 26, 2017 and September 12, 2016. FINDINGS: Breast Composition: The breasts are heterogeneously dense, which may obscure small masses. There are no dominant masses or suspicious calcifications. No other significant abnormalities are identified. There has been no significant change since the prior study. BI/SCREENING MAMM (CAD), BILAT IMPRESSION: Stable bilateral screening mammogram. Yearly follow-up mammogram recommended. (A) ASSESSMENT CATEGORY: BIRADS Category 1: Negative. A letter regarding these results will be sent to the patient by the facility within 30 days. Approximately 10% of breast cancers are not detected by mammography. A normal mammogram should not delay biopsy of a clinically suspicious abnormality. [id number] Electronically Signed: Chaz Roman, at 10:55 EDT , Service support , CC: Jay Douglas DO; Zoe Sy MD Program Consultant: Signed Sridevi Dover Start: 09-26-2017 End: 09-26-2017 SCREENING MAMM (CAD), BILAT Comments: See Note; NOTES: [facility] Imaging Services [address] [place] [address] SCREENING MAMM (CAD), BILAT MR#: [id number] Acct: [id number] Name: ERA AWAD Rep #: [id number] : 1975 F 41 From: Chaz Roman MD PCP: Jay Douglas DO Status: REG CLI Study: SCREENING MAMM (CAD), BILAT Date of Exam: 09/26/17 Exam# [id number] Ordering Dr: Zoe Sy MD MAMMOGRAPHY - BILATERAL SCREENING REASON FOR EXAM: Female, 41 years old. Routine annual screening examination. PERTINENT HISTORY: Aunt with breast cancer. TECHNIQUE: Digital bilateral breast freddy (3D mammographic acquisition) in the CC and MLO projections. 2-D mediolateral oblique (MLO) and craniocaudad (CC) views of both breasts were obtained. CAD: Full Field Digital Mammography with Computer Added Detection was performed. COMPARISON: Comparison is made with prior study dated September 12, 2016 and August 20, 2015. FINDINGS: Breast Composition: The breasts are heterogeneously dense, which may obscure small masses. There are no dominant masses or suspicious calcifications. No other significant abnormalities are identified. There has been no significant change since the prior study. BI/SCREENING MAMM (CAD), BILAT IMPRESSION: Stable bilateral screening mammogram. Yearly follow-up mammogram recommended. (A) ASSESSMENT CATEGORY: BIRADS Category 1: Negative. A letter regarding these results will be sent to the patient by the facility within 30 days. Approximately 10% of breast cancers are not detected by mammography. A normal mammogram should not delay biopsy of a clinically suspicious abnormality. [id number] Electronically Signed: Chaz Roman MD at 14:47 EDT Tel [phone], Service support , CC: Jay Douglas DO; Zoe Sy MD Program Consultant: Signed Sridevi Dover Start: 09-12-2016 End: 09-12-2016 SCREENING MAMM (CAD), BILAT Comments: See Note; NOTES: [facility] Imaging Services [address] [place] [address] Verdana 4d SCREENING MAMM (CAD), BILAT MR#: [id number] Acct: [id number] Name: ERA AWAD Rep #: [id number] : 1975 F 40 From: Chaz Roman MD PCP: Jay Douglas DO Status: REG CLI Study: SCREENING MAMM (CAD), BILAT Date of Exam: 09/12/16 Exam# [id number] Ordering Dr: Zoe Sy MD MAMMOGRAPHY - BILATERAL SCREENING REASON FOR EXAM: Female, 40 years old. Routine annual screening examination. PERTINENT HISTORY: Aunt with breast cancer. TECHNIQUE: Digital bilateral breast freddy (3D mammographic acquisition) in the CC and MLO projections. 2-D mediolateral oblique (MLO) and craniocaudad (CC) views of both breasts were obtained. CAD: Full Field Digital Mammography with Computer Added Detection was performed. COMPARISON: Comparison is made with prior study of August 20, 2015 and August 18, 2014. FINDINGS: Breast Composition: The breasts are heterogeneously dense, which may obscure small masses. There are no dominant masses or suspicious calcifications. No other significant abnormalities are identified. There has been no significant change since the prior study. HPBI/SCREENING MAMM (CAD), BILAT IMPRESSION: Stable bilateral screening mammogram. Yearly follow-up mammogram recommended. (A) ASSESSMENT CATEGORY: BIRADS Category 1: Negative. A letter regarding these results will be sent to the patient by the facility within 30 days. Approximately 10% of breast cancers are not detected by mammography. A normal mammogram should not delay biopsy of a clinically suspicious abnormality. [id number] Electronically Signed: Chaz Roman MD at 9:29 EDT Tel [phone], Service support [phone], CC: Jay Douglas DO; Zoe Sy MD Program Consultant: Signed Sridevi Dover Start: 08-20-2015 End: 08-20-2015 Bilat Scrn Digital AND CAD Comments: See Note; NOTES: [facility] Imaging Services [address] [place] [address] Verdana 4d Bilat Scrn Digital AND CAD MR#: [id number] Acct: [id number] Name: ERA AWAD Rep #: [id number] : 1975 F 39 From: Chaz Roman MD PCP: Jay Douglas DO Status: REG CLI Study: Bilat Scrn Digital AND CAD Date of Exam: 08/20/15 Exam# [id number] Ordering Dr: Zoe Sy MD MAMMOGRAPHY - BILATERAL SCREENING REASON FOR EXAM: Female, 39 years old. Routine annual screening examination. PERTINENT HISTORY: Aunt with breast cancer. TECHNIQUE: Digital examination. Mediolateral oblique (MLO) and craniocaudad (CC) views of both breasts were obtained. CAD: CAD was performed on this study. COMPARISON: Comparison is made with prior study dated August 18, 2014 and August 15, 2013. FINDINGS: Breast Composition: The breasts are heterogeneously dense, which may obscure small masses. There are no dominant masses or suspicious calcifications. No other significant abnormalities are identified. There has been no significant change since the prior study. IMPRESSION: Stable bilateral screening mammogram. Yearly follow-up mammogram recommended. (A) ASSESSMENT CATEGORY: BIRADS Category 1: Negative. A letter regarding these results will be sent to the patient by the facility within 30 days. This Approximately 10% of breast cancers are not detected by mammography. A normal mammogram should not delay biopsy of a clinically suspicious abnormality. [id number] Electronically Signed: Chaz Roman MD at 8:25 EST Tel [phone], Service support [phone], CC: Jay Douglas DO; Zoe Sy MD Program Consultant: Signed Sridevi Dover Start: 08-18-2015 End: 08-18-2015 Abdomen/Pelvis without Cont Comments: See Note; NOTES: [facility] Imaging Services [address] [place] [address] Verdana 4d Abdomen/Pelvis without Cont MR#: [id number] Acct: [id number] Name: ERA AWAD Rep #: [id number] : 1975 F 39 From: Chaz Roman MD PCP: Jay Douglas DO Status: REG CLI Study: Abdomen/Pelvis without Cont Date of Exam: 08/18/15 Exam# [id number] Ordering Dr: Era Linares STUDY: CT ABDOMEN AND PELVIS WITHOUT CONTRAST REASON FOR EXAM: Female, 39 years old. Hematuria. Right flank pain. RADIATION DOSAGE (If Supplied By Facility): CTDIvol = ( 12.53 ) mGy, DLP = ( 613.36 ) mGycm TECHNIQUE: Transaxial images were obtained from the dome of the diaphragm to the symphysis pubis without oral contrast, and without intravenous contrast. Sagittal and coronal images were reconstructed. COMPARISON: None. FINDINGS: The visualized lung bases are unremarkable. The visualized portions of the heart are within normal limits. Normal liver. Normal gallbladder and extrahepatic biliary system. Normal spleen. Normal pancreas. Normal bilateral adrenal glands. Normal right kidney. 2 small cysts are seen in the left kidney. Normal visualized stomach. Normal small intestine. Normal colon. The appendix is visualized and appears normal. Normal abdominal aorta. Normal inferior vena cava. Normal retroperitoneum. Normal urinary bladder. Normal abdominal wall. Normal osseous structures. IMPRESSION: Normal unenhanced CT of the abdomen and pelvis. Electronically Signed: Chaz Roman MD at 11:42 EST Tel [phone], Service support [phone], CC: Era Linares; Jay Douglas DO Program Consultant: Signed Era Linares Work Phone: Start: 08-18-2014 End: 08-18-2014 Bildaniela Pacheco Digital AND CAD Comments: See Note; NOTES: [facility] Imaging Services [address] [place] [address] Breast Imaging Report MR#: [id number] Acct: [id number] Name: ERA AWAD Rep #: [id number] : 1975 F 38 From: Chaz Roman MD PCP: Jay Douglas DO Status: PRE CLI Study: Vandana Pacheco Digital AND CAD Date of Exam: 08/18/14 Exam# [id number] Ordering Dr: Zoe Sy MD MAMMOGRAPHY - BILATERAL SCREENING REASON FOR EXAM: Female, 38 years old. Routine annual screening examination. PERTINENT HISTORY: Aunt with breast cancer. TECHNIQUE: Digital examination. Mediolateral oblique (MLO) and craniocaudad (CC) views of both breasts were obtained. CAD: CAD was performed on this study. COMPARISON: Comparison is made with prior study dated August 15, 2013. FINDINGS: Breast Composition: The breasts are heterogeneously dense, which may obscure small masses. There are no dominant masses or suspicious calcifications. No other significant abnormalities are identified. There has been no significant change since the prior study. IMPRESSION: Stable bilateral screening mammogram. Yearly follow-up recommended. (A) ASSESSMENT CATEGORY: BIRADS Category 2: Benign. A letter regarding these results will be sent to the patient by the facility within 30 days. Approximately 10% of breast cancers are not detected by mammography. A normal mammogram should not delay biopsy of a clinically suspicious abnormality. Electronically Signed: Chaz Roman MD at 7:57 EST Tel [phone], Service support [phone], CC: Jay Douglas DO; Zoe Sy MD Program Consultant: Signed Sridevi Dover Plan of Treatment Date Care Activity Detail Author Start: 02-19-2029 Screening for malign ant neoplasm of cervix Cervical Cancer Screening [facility] System Start: 03-20-2025 Screening for malign ant neoplasm of breast Mammogram Screening [facility] Start: 02-25-2025 End: 02-25-2025 Patient encounter procedure 02/25/2025 4:00 PM EDT Office Visit OB/Gynecology [address] [place] [address] Vanessa Palomares, ORGANIC CHEMIST.LUMBER CHECKER [address] [place] [address] Annual OB/Gynecology Comment on above: Annual Start: 02-21-2025 End: 02-21-2025 Patient encounter procedure 02/21/2025 4:00 PM EDT Office Visit OB/Gynecology [address] [place] [address] Vanessa Palomares, ORGANIC CHEMIST.LUMBER CHECKER [address] [place] [address] Annual OB/Gynecology Comment on above: Annual Start: 02-17-2025 Influenza vaccination Influenz a Vaccine (Season Ended) [facility] Start: 02-29-2024 End: 02-29-2024 Patient encounter procedure 02/29/2024 2:50 PM EDT Appointment Mammogram [address] [place] [address] Encounter for screening mammogram for breast cancer [Z12.31] Mammogram Comment on above: Encounter for screen ing mammogram for breast cancer [Z12.31] Start: 02-22-2024 Screening for malign ant neoplasm of breast Mammogram Screening [facility] Start: 02-18-2024 Covid-19 Vaccine ( season) Covid-19 Vaccine () [facility] Start: 02-18-2024 Covid-19 Vaccine () Covid-19 Vaccine () [facility] Start: 02-18-2024 Influenza vaccination Influenza Vacc ine (#1) [facility] Start: 12-21-2023 Pneumococcal Vaccine : 50+ (1 of 1 - PCV) Pneumococcal Vaccine: 50+ (1 of 1 - PCV) [facility] Start: 12-21-2023 Shingrix Vaccine (1 of 2) Shingrix Vaccine (1 of 2) [facility] Start: 11-27-2023 Screening for malign ant neoplasm of cervix Cervical Cancer Screening [facility] Start: 2018 Diabetes Screening Diabetes Screenin g [facility] Start: 2018 Lipid panel Lipid Screening [facility] Start: 2018 Screening for malign ant neoplasm of colon [facility] Start: 08-25-2015 Provider Instruction s for Treatment Follow up in 1 week [facility] Work Phone: Start: 08-25-2015 Amylase [Catalytic activity/Vol] AMYLASE (04254) [facility] Work Phone: Start: 08-25-2015 Assay of lipase LIPASE (26438) [facility] Work Phone: Start: 08-25-2015 Comprehensive metabo lic panel Metabolic Panel, Comprehensive (03697) [facility] Work Phone: Start: 08-25-2015 Blood count complete auto&auto difrntl wbc CBC, Platelets & Auto Diff (24066) [facility] Work Phone: Start: 08-18-2015 Provider Instruction s for Treatment Follow up in 1 week [facility] Work Phone: Start: 09-25-2007 Lipid panel LIPID PANEL (07900) [facility]ive Internal Medicine Work Phone: Start: 1992 Urine microalbumin profile DTaP,Tdap,Td Vaccine (1 - Tdap) [facility] Start: 12-21-1991 Anxiety Screening Anxiety Screening [facility] Start: 12-21-1991 Depression Screening Depression Scre ening [facility] Start: 12-21-1991 Hepatitis C screening Hepatitis C Sc reening [facility] Start: 12-21-1991 HIV screening HIV Screening [facility] End: 03-21-2025 DBT Breast - bilateral screening [facility] Routine Encounter for screening mammogram for breast cancer 1 Occurrences starting 02/20/2024 until 03/21/2025 [facility] Work Phone: Comment on above: 1 Occurrences starti ng 02/20/2024 until 03/21/2025 DBT Breast - bilater al screening YECENIA SCREENING [facility] Radiology Routine Encounter for screening mammogram for breast cancer 03/20/2024 3:20 PM EDT [facility] Work Phone: PAP TEST PAP TEST Lab Sigrid hurt Encounter for gynecological examination (general) (routine) without abnormal findings Screening for cervical cancer Encounter for screening for human papillomavirus (HPV) 02/20/2024 4:16 PM EDT [facility] Work Phone: [facility] Work Phone: Immunizations Immunization Date Immunization Notes Care Provider Zainab dill 11-17-2020 hepatitis B vaccine, adult dosage Molly Jackson PA-C Work Phone: [facility], [place], [facility]. 09-11-2020 COVID-Moderna (50 MCG/0.5 ML) Molly Jackson PA-C Work Phone: [facility], [facility].; [facility], [facility] 08-15-2020 COVID-Moderna (50 MCG/0.5 ML) Molly Jackson PA-C Work Phone: [facility] 04-06-2020 hepatitis B vaccine, adult dosage Molly Jackson PA-C Work Phone: [facility], [facility]. 03-27-2020 influenza virus vaccine, unspecified formulation Vanessa Palomares KEITH Work Phone: [facility] 03-06-2020 hepatitis B vaccine, adult dosage Molly Jackson PA-C Work Phone: [facility] Payers Date Payer Category Payer Private Health Insurance MMO [employer] PPO Member Subscriber Plan / Payer (Effective 2022-Present) Name: Era Awad Dominguez Relation to Subscriber: Self Name: Era Awad Dominguez Payer ID: Not on file Type: PPO Address: [place] [id number] [id number] 2022 Unknown 2022 Unknown [id number] 2011 Private Health Insurance [employer] [id number] Self-pay SELF PAY INSURANCE [id number] Social History Date Type Detail Facility Start: 02-20-2024 Alcohol Use Alcohol Use [facility] Work Phone: Comment on above: Occasional alcohol u se qd Start: 08-13-2013 Tobacco smoking status NHIS Unknown if ever smoked [facility] Start: 1975 Sex Assigned At Female [facility] Start: 02-20-2024 Tobacco smoking status NHIS Never smoked tobacco [facility] Start: 02-20-2024 Tobacco use and exposure Smokeless tobacco non-user [facility] Start: 02-20-2024 End: 11-27-2024 Alcoholic beverage intake Current non-drinker of alcohol (finding) [facility] Start: 02-20-2024 Tobacco use panel [facility] Work Phone: National Score (1-100), lower number is lower risk 57 [facility] Start: 1975 Sex assigned at Not on file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
== END | disposition home or self-care (01) ==
LOC: LABSPEC 06:35
PROVIDERS: Referring Provider Otolaryngology; Visit Provider Otolaryngology
DX: R05.9 Cough, unspecified (principal)
CPT/HCPCS: 87070; 87077; 87205